=== PATIENT | male | born 1995 | race Caucasian/White ===

== ENCOUNTER 2022-02-12 22:51 | Emergency (ER) | payer OTHER ==
[~2022-02-12] VITALS: Ht 177.8 cm; Wt 72.7 kg
[2022-02-12 23:08] VITALS: BP 155/65
[2022-02-13] MEDS ORDERED: TETanus/Pertussis (Acell)/Diphther VAC/PF (Tdap-Adult) 0.5ml syringe IMVAC ONE (03:05)
[2022-02-13] MEDS ORDERED: LIDOcaine 1% 30ml preserv. free vial IJ STA (04:23)
[2022-02-13] MEDS ORDERED: silver nitrate applicator stick TP ONE ×2 (05:15→05:35)
[2022-02-13] MEDS ORDERED: bacitracin 15gm ointment TP ONE (06:05)
== END 2022-02-13 06:16 | disposition home or self-care (01) ==
LOC: ER 22:52
DX: S61.213A Laceration without foreign body of left middle finger without damage to nail, initial encounter (principal); Z88.8 Allergy status to other drugs, medicaments and biological substances; W45.8XXA Other foreign body or object entering through skin, initial encounter; Y93.89 Activity, other specified; Y92.89 Other specified places as the place of occurrence of the external cause; Y99.8 Other external cause status
CPT/HCPCS: 12001; 90715; 99284; J3490; J7030; A6258; A6449